=== PATIENT | female | born 1995 | race Caucasian/White ===

== ENCOUNTER 2018-01-03 23:06 | Emergency (ER) | payer BC ==
[2018-01-03] MEDS ORDERED: HYDROmorphone 0.5 MG/0.5 ML SYRINGE IVPUSH ONE (23:37)
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
[2018-01-04] MEDS ORDERED: HYDROmorphone 0.5 MG/0.5 ML SYRINGE IVPUSH STA (00:22)
[2018-01-04] MEDS ORDERED: Proparacaine 0.5% Ophth Soln 15 ML Bottle EYERT STA (01:05)
[2018-01-04] MEDS ORDERED: Fluorescein 0.6 MG Ophth Strip EYERT ONE (01:05)
[2018-01-04] MEDS ORDERED: HYDROmorphone 0.5 MG/0.5 ML SYRINGE IVPUSH ONE (01:16)
== END 2018-01-04 02:30 | disposition home or self-care (01) ==
LOC: JD.ED 23:06
DX: S42.002A Fracture of unspecified part of left clavicle, initial encounter for closed fracture (principal); S05.01XA Injury of conjunctiva and corneal abrasion without foreign body, right eye, initial encounter; V48.5XXA Car driver injured in noncollision transport accident in traffic accident, initial encounter; Y92.488 Other paved roadways as the place of occurrence of the external cause
CPT/HCPCS: 70450; 70486; 71046; 72125; 96374; 96376; 99285; J1170